=== PATIENT | female | born 1950 | race Caucasian/White ===

== ENCOUNTER 2017-03-16 11:07 | Outpatient (CLI) | payer MEDICARE, BC ==
[2016-03-29 11:42] VITALS: O2SAT 91
== END 2017-03-16 11:08 | disposition home or self-care (01) | DRG 566 ==
LOC: CONVCARE 11:07
PROVIDERS: ATTEND Orthopaedic Surgery
DX: Z96.653 Presence of artificial knee joint, bilateral (principal)
CPT/HCPCS: 73562